=== PATIENT | male | born 1990 | race Caucasian/White ===

== ENCOUNTER 2017-04-22 18:49 | Emergency (ER) | payer OTHER ==
[2017-04-22] MEDS ORDERED: Tetan/Diph/Pertus SYR(Tdap)* 0.5 ML SYR(BOOSTRIX) use SYR IM ONE (21:19)
[2017-04-22] MEDS ORDERED: Lidocaine 1%* 5 ML VIAL INJ ONE (23:41)
--- NOTE | 2017-04-23 01:24 | ED ---
Upper Extremity Pain - HPI Summary HPI Summary: Rt hand dominant pt here w/ Lac Rt thumb lateral aspect - pain - denies numbness , tingling, weakness. Cut on porcelain sink as he was throwing it into a dumpster. Unsure if imms are UTD. 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 - Allergies/Home Medications Allergies/Adverse Reactions: Allergies Allergy/AdvReac Type Severity Reaction Status Date / Time No Known Allergies Allergy Verified 04/22/17 19:08 PMH/Surg Hx/FS Hx/Imm Hx Musculoskeletal History: Denies: Hx Rheumatoid Arthritis, Hx Osteoporosis Infectious Disease History: No Infectious Disease History: Denies: Traveled Outside the [place] in Last 30 Days - Social History Alcohol Use: None Substance Use Type: Reports: None Smoking Status (MU): Never Smoked Tobacco Physical Exam Vital Signs On Initial Exam: Initial Vitals Temp Pulse Resp BP Pulse Ox 98.7 F 82 18 152/109 96 04/22/17 18:50 04/22/17 18:50 04/22/17 18:50 04/22/17 18:50 04/22/17 18:50 Procedures - Laceration/Wound Repair 1 Location: upper extremity - rT THUMB Description: Linear Anesthesia: Local, Lido Length, Depth and Shape: 3CM X 5MM - LACERATED VESSEL OBSERVED BUT NOT BLEEDING ; BONE/TENDON OBSERVED - NO BUBBA LACERATION OBSERVED HOWEVER PT HAS PAIN W/ ABDUCTION OF THUMB AND POPPING AT MCP joint w/ pain during resisted movement testing Betadine Prep?: Yes Irrigated w/ Saline (ccs): 250 - sterile water; soaked in hibaclens solution prior Laceration/Wound Explored: clean Closure: Single Layer Suture Type: Nylon - 5-0 Number of Sutures: 3 Layer Closure?: No Sterile Dressing Applied?: Yes - triple anbx ointment + sterile gauze + coban - hemodynamically stable Diagnostics - Vital Signs Vital Signs Temp Pulse Resp BP Pulse Ox 04/22/17 18:50 98.7 F 82 18 152/109 96 - Laboratory Lab Statement: Any lab studies that have been ordered have been reviewed, and results considered in the medical decision making process. Course/Dx - Course Course Of Treatment: Pt's Rt thumb lac loosely repaired as he may have tendon injury deeper. Placed in thumb spica and advised to f/u w/ hand specialist tomorrow for investigation. - Diagnoses Provider Diagnoses: Laceration of right thumb, Injury of tendon of thumb Discharge - Discharge Plan Condition: Stable Disposition: HOME Patient Education Materials: Finger Laceration (ED), Tendon Laceration (ED) Referrals: Garth Minaya MD [Medical Doctor] - Additional Instructions: Keep dressing clean, dry and in place until seen by hand specialist tomorrow. Call first thing in the morning to schedule an appointment tomorrow for re- investigation of your wound. Rest, ice and elevate for pain relief. You may also take ibuprofen alternating with acetaminophen for pain relief *If you develop numbness, discoloration or intractable pain in the meantime, return to the ED
[2017-04-23 02:00] VITALS: BP 106/73
== END 2017-04-23 01:55 | disposition home or self-care (01) ==
LOC: ED 18:49
DX: S61.011A Laceration without foreign body of right thumb without damage to nail, initial encounter (principal); W26.9XXA Contact with unspecified sharp object(s), initial encounter; Y92.9 Unspecified place or not applicable
CPT/HCPCS: 12001; 90471; 90715; 99282

== ENCOUNTER 2018-06-09 17:37 | Emergency (ER) | payer OTHER ==
[2018-06-09 17:59] VITALS: BP 110/69
[2018-06-09] MEDS ORDERED: Triamcinolone Acetonide* 40 MG/ML 1 ML VIAL IM ONE (18:44)
--- NOTE | 2018-06-09 18:52 | UC ---
Skin Complaint HPI - HPI Summary HPI Summary: 28 yo male with rash x days A few Last week was kayaking all day rash prurutic - History of Current Complaint Chief Complaint: UCRash Time Seen by Provider: 06/09/18 18:32 Stated Complaint: RASH Hx Obtained From: Patient Onset/Duration: Sudden Onset, Lasting Days Timing: Constant Onset Severity: Mild Current Severity: Mild Pain Intensity: 0 Pain Scale Used: 0-10 Numeric Location: Other - back >abd.ext Character: Pruritus, Redness, Raised Aggravating Factor(s): Nothing Alleviating Factor(s): Nothing Associated Signs & Symptoms: Positive: Rash. Negative: Vomiting, Numbness, Thirst, Diaphoresis, Weakness, Pallor, Shivering, Difficulty Breathing, Fever, Chills, Cough, Wheezing, Chest Pain, Hoarseness, Throat Tightening, Abdominal Pain, Lightheadedness, Syncope, Drainage, Bruising, Tenderness, Red Streaks, Joint Swelling - Allergy/Home Medications Allergies/Adverse Reactions: Allergies Allergy/AdvReac Type Severity Reaction Status Date / Time No Known Allergies Allergy Verified 06/09/18 17:59 Home Medications: Home Medications NK [No Home Medications Reported] 06/09/18 [History Confirmed 06/09/18] PMH/Surg Hx/FS Hx/Imm Hx Previously Healthy: Yes Other History Of: Negative For: Anticoagulant Therapy - Surgical History Surgical History: None - Family History Known Family History: Positive: Non-Contributory - Social History Alcohol Use: Weekly Substance Use Type: None Smoking Status (MU): Never Smoked Tobacco Review of Systems All Other Systems Reviewed And Are Negative: Yes Constitutional: Positive: Negative Skin: Positive: Rash Eyes: Positive: Negative ENT: Positive: Negative Respiratory: Positive: Negative Cardiovascular: Positive: Negative Gastrointestinal: Positive: Negative Genitourinary: Positive: Negative Motor: Positive: Negative Neurovascular: Positive: Negative Musculoskeletal: Positive: Negative Neurological: Positive: Negative Psychological: Positive: Negative Physical Exam Triage Information Reviewed: Yes Appearance: Well-Appearing, No Pain Distress, Well-Nourished Vital Signs: Initial Vital Signs Temp 98.9 F 06/09/18 17:55 Pulse 61 06/09/18 17:55 Resp 18 06/09/18 17:55 BP 110/69 06/09/18 17:55 Pulse Ox 99 06/09/18 17:55 Vital Signs Reviewed: Yes Eyes: Positive: Conjunctiva Clear ENT: Positive: Hearing grossly normal, Uvula midline. Negative: Nasal congestion, Nasal drainage, Trismus, Hoarse voice Neck: Positive: Supple, Nontender, No Lymphadenopathy Respiratory: Positive: Lungs clear, Normal breath sounds, No respiratory distress, No accessory muscle use Cardiovascular: Positive: RRR, No Murmur Musculoskeletal: Positive: ROM Intact, No Edema Neurological: Positive: Alert Skin Exam: Other - see image, rash also starting on face/neck/arms/legs Images Front/Back of Body, Lg ([place]): 1 - rash worse here 2 - scatterred papules in linear arrays Course/Dx - Diagnoses Provider Diagnosis: Contact dermatitis Discharge - Sign-Out/Discharge Documenting (check all that apply): Patient Departure All imaging exams completed and their final reports reviewed: No Studies - Discharge Plan Condition: Stable Disposition: HOME Patient Education Materials: Contact Dermatitis (ED) Referrals: Glenn Borja MD [Primary Care Provider] - 5 Days (if not markedly improved ) Additional Instructions: oral benadryl if needed cool compresses with epsom salts - Billing Disposition and Condition Condition: STABLE Disposition: Home
== END 2018-06-09 19:00 | disposition home or self-care (01) ==
LOC: UCEAST 17:37
DX: L25.9 Unspecified contact dermatitis, unspecified cause (principal)
CPT/HCPCS: 99211; G0463; J3301